=== PATIENT | female | born 1965 | race Two or more races ===

== ENCOUNTER 2021-03-23 12:49 | Emergency (ER) | payer OTHER ==
[2021-03-23 12:55] VITALS: TEMP 98
--- NOTE | 2021-03-23 13:03 | ED ---
General Adult HPI - General Chief complaint: Shortness of Breath Stated complaint: Covid+, SOB Time Seen by Provider: 03/23/21 12:58 Source: patient, RN notes reviewed Mode of arrival: ambulatory Limitations: no limitations - History of Present Illness Initial comments: Patient is a 54-year-old female that presents to the emergency department complaining of increased shortness of breath after being Covid-positive on 03/19/2021. She notes that she has no other symptoms or complaints other than the increased shortness of breath. She was well-appearing well-hydrated while sitting up in bed during exam and interview. She denied any chest pain headache nausea vomiting diarrhea constipation fever fatigue chills loss of sense of taste or smell. - Related Data Previous Rx's Medication Instructions Recorded Ascorbic Acid [Vitamin C] 1,000 mg PO DAILY 30 Days #30 03/23/21 tablet Cholecalciferol (Vitamin D3) 125 mcg PO DAILY 30 Days #30 cap 03/23/21 [Vitamin D3 (5000 Iu)] Zinc 50 mg PO DAILY 30 Days #30 tablet 03/23/21 Allergies Allergy/AdvReac Type Severity Reaction Status Date / Time No Known Allergies Allergy Verified 03/23/21 12:55 Review of Systems ROS Statement: Those systems with pertinent positive or pertinent negative responses have been documented in the HPI. ROS Other: All systems not noted in ROS Statement are negative. Past Medical History Past Medical History: Pneumonia, Thyroid Disorder Additional Past Medical History / Comment(s): Covid + 03/19/21 History of Any Multi-Drug Resistant Organisms: None Reported Past Surgical History: No Surgical Hx Reported Past Psychological History: No Psychological Hx Reported Smoking Status: Never smoker Past Alcohol Use History: None Reported Past Drug Use History: None Reported General Exam Limitations: no limitations General appearance: alert, in no apparent distress Head exam: Present: atraumatic, normocephalic, normal inspection Eye exam: Present: normal appearance, PERRL, EOMI. Absent: scleral icterus, conjunctival injection, periorbital swelling Neck exam: Present: normal inspection Respiratory exam: Present: normal lung sounds bilaterally. Absent: respiratory distress, wheezes, rales, rhonchi, stridor Cardiovascular Exam: Present: regular rate, normal rhythm, normal heart sounds. Absent: systolic murmur, diastolic murmur, rubs, gallop, clicks Extremities exam: Present: normal inspection, full ROM, normal capillary refill. Absent: tenderness, pedal edema, joint swelling, calf tenderness Back exam: Present: normal inspection Neurological exam: Present: alert, oriented X3, CN II-XII intact Psychiatric exam: Present: normal affect, normal mood Skin exam: Present: warm, dry, intact, normal color. Absent: rash Course Vital Signs 03/23/21 12:52 Temperature 98.0 F Pulse Rate 82 Respiratory 20 Rate Blood Pressure 145/67 O2 Sat by Pulse 95 Oximetry Medical Decision Making - Medical Decision Making 55-year-old female who is Covid-positive on 03/19/2021 complaining of shortness of breath. Chest x-ray and rapid Covid test ordered. Patient was informed that she does not meet the criteria for monoclonal antibody therapy. Covid test positive. Case discussed with Dr. Chiu, patient can discharge home with conservative management. - Lab Data Lab Results 03/23/21 Range/Units 13:04 Coronavirus (PCR) Detected A (Not Detectd) - Radiology Data Radiology results: report reviewed, image reviewed Chest x-ray no acute cardiopulmonary process. Disposition Clinical Impression: COVID-19 Disposition: HOME SELF-CARE Condition: Stable Instructions (If sedation given, give patient instructions): Coronavirus Disease 2019 (COVID-19) Additional Instructions: Please return to the Emergency Department if symptoms worsen or any other concerns. Follow-up primary care after the 10-14 day quarantine. Symptom onset. Vitamin C sent to pharmacy to help relieve and reduce symptoms. Increase oral fluids, get plenty rest. Prescriptions: Ascorbic Acid [Vitamin C] 1,000 mg PO DAILY 30 Days #30 tablet Cholecalciferol (Vitamin D3) [Vitamin D3 (5000 Iu)] 125 mcg PO DAILY 30 Days #30 cap Zinc 50 mg PO DAILY 30 Days #30 tablet Is patient prescribed a controlled substance at d/c from ED?: No Referrals: Nonstaff,Physician [Primary Care Provider] - 1-2 days Time of Disposition: 14:16
--- NOTE | 2021-03-23 14:08 | XR ---
EXAMINATION TYPE: XR chest 2V DATE OF EXAM: 03/23/2021 COMPARISON: NONE HISTORY: Shortness of breath. COVID positive. TECHNIQUE: Frontal and lateral views of the chest are obtained. FINDINGS: There is no suspicious focal air space opacity, pleural effusion, or pneumothorax seen. T he cardiac silhouette size is upper limits of normal. The osseous structures are intact. IMPRESSION: No acute cardiopulmonary process.
[2021-03-23 14:25] VITALS: BP 136/89; PULSE 89; RESP 16
== END 2021-03-23 14:24 | disposition home or self-care (01) ==
LOC: EC 12:49
DX: U07.1 COVID-19 (principal)
CPT/HCPCS: 71046; 87635; 99285

== ENCOUNTER 2021-03-25 12:32 | Emergency (ER) | payer OTHER ==
[2021-03-25 12:44] VITALS: TEMP 98.1
[2021-03-25 13:15] LABS: Anisocytosis Slight; Basophils % (A) 0 %; Eosinophils % (A) 0 %; HCT 33.3 % (34.0-46.0); HGB 10.7 gm/dL (11.4-16.0); Hypochromasia Slight; Lymphocytes # (A) 2.8 k/uL (1.0-4.8); Lymphocytes % (A) 54 %; MCH 22.2 pg (25.0-35.0); MCHC 32.1 g/dL (31.0-37.0); MCV 69.2 fL (80.0-100.0); Mean Platelet Volume 6.7; Microcytosis Marked; Monocytes # (A) 0.4 k/uL (0-1.0); Monocytes % (A) 7 %; Neutrophils # (A) 1.9 k/uL (1.3-7.7); Neutrophils % (A) 36 %; Platelet Count 254 k/uL (150-450); Poikilocytosis Slight; RBC 4.81 m/uL (3.80-5.40); RDW 17.8 % (11.5-15.5); WBC 5.3 k/uL (3.8-10.6)
--- NOTE | 2021-03-25 13:23 | XR ---
EXAMINATION TYPE: XR chest 2V DATE OF EXAM: 03/25/2021 COMPARISON: 03/23/2021 INDICATION: Chest pain and weakness TECHNIQUE: Frontal and lateral views of the chest are obtained. FINDINGS: The heart size is normal. The pulmonary vasculature is normal. The lungs are clear. IMPRESSION: 1. No acute pulmonary process.
[2021-03-25 13:35] LABS: ALT 30 U/L (4-34); AST 42 U/L (14-36); African American GFR (CKD) >90 (>60 ml/min/1.73 sqM); Albumin 4.5 g/dL (3.5-5.0); Alkaline Phosphatase 97 U/L (38-126); Anion Gap 10 mmol/L; Blood Urea Nitrogen 11 mg/dL (7-17); Calcium 9.6 mg/dL (8.4-10.2); Carbon Dioxide 24 mmol/L (22-30); Chloride 107 mmol/L (98-107); Glucose 109 mg/dL (74-99); Magnesium 1.9 mg/dL (1.6-2.3); Non-African American GFR(CKD) >90 (>60 ml/min/1.73 sqM); Potassium 3.8 mmol/L (3.5-5.1); Sodium 141 mmol/L (137-145); Total Bilirubin 0.6 mg/dL (0.2-1.3); Total Protein 8.9 g/dL (6.3-8.2)
[2021-03-25 13:44] LABS: Partial Thromboplastin Time 23.9 sec (22.0-30.0); Prothrombin Time 10.4 sec (9.0-12.0)
[2021-03-25 13:47] LABS: D-Dimer 0.89 mg/L FEU (<0.60)
--- NOTE | 2021-03-25 14:30 | CT ---
EXAMINATION TYPE: CT chest angio for PE DATE OF EXAM: 03/25/2021 COMPARISON: None HISTORY: High heart rate CT DLP: 264.8 mGycm Automated exposure control for dose reduction was used. CONTRAST: Performed with IV Contrast, patient injected with 100, wasted 22 mL of Isovue 370. Images obtained from the thoracic inlet to the diaphragm with IV contrast. There are 3-D post process ed images. There is no mediastinal adenopathy. There are a few mediastinal and peritracheal lymph nodes that rancho sure less than 1 cm. There are no hilar masses. There are bronchial lymph nodes up to 1 cm. There is normal contrast opacification of the pulmonary arteries. There are no filling defects. Thoracic aorta is intact. There is no aneurysm or dissection. Ascending aorta measures 3.3 cm. There are patchy groundglass peripheral pulmonary mild bilateral infiltrates. There is no pleural eff usion. There is no pericardial effusion. The thoracic spine is intact. There is no compression fracture. Sternum is intact. I see no bony dest ructive process. The upper abdominal soft tissues appear intact. IMPRESSION: No evidence of pulmonary embolism. Mild patchy peripheral groundglass pulmonary interstitial pneumonia.
[2021-03-25 15:21] VITALS: RESP 16
[2021-03-25] MEDS ORDERED: LORazepam 2 MG/ML INJ IM STA (15:21)
--- NOTE | 2021-03-25 17:12 | ED ---
Chest Pain HPI - General Chief Complaint: Chest Pain Stated Complaint: High heart rate Time Seen by Provider: 03/25/21 12:50 Source: patient Mode of arrival: wheelchair Limitations: no limitations - History of Present Illness Initial Comments: 56-year-old female presenting today for chief complaint of chest discomfort. pt states she tested positive for covid 2 days ago, she states symptoms began sunday. patient states she doesnt really feel short of breath but at times her heart feels like it is racing. pt admits to fatigue and chills. denies additio nal complaints. Denies rashes, diarrhea, nausea, vomiting, jaw or arm pain. patient on arrival appears well nontoxic in no acute distress. - Related Data Home Medications Medication Instructions Recorded Confirmed amLODIPine [Norvasc] 5 mg PO DAILY 03/25/21 03/25/21 Previous Rx's Medication Instructions Recorded Ascorbic Acid [Vitamin C] 1,000 mg PO DAILY 30 Days #30 03/23/21 tablet Cholecalciferol (Vitamin D3) 125 mcg PO DAILY 30 Days #30 cap 03/23/21 [Vitamin D3 (5000 Iu)] Zinc 50 mg PO DAILY 30 Days #30 tablet 03/23/21 ALPRAZolam [Xanax] 0.5 mg PO HS PRN 3 Days #3 tab 03/25/21 Allergies Allergy/AdvReac Type Severity Reaction Status Date / Time No Known Allergies Allergy Verified 03/25/21 14:12 Review of Systems ROS Statement: Those systems with pertinent positive or pertinent negative responses have been documented in the HPI. ROS Other: All systems not noted in ROS Statement are negative. Past Medical History Past Medical History: Diabetes Mellitus, Pneumonia, Thyroid Disorder Additional Past Medical History / Comment(s): Covid + 03/19/21, History of Any Multi-Drug Resistant Organisms: None Reported Past Surgical History: No Surgical Hx Reported Past Psychological History: No Psychological Hx Reported Smoking Status: Never smoker Past Alcohol Use History: None Reported Past Drug Use History: None Reported General Exam - General Exam Comments Initial Comments: General: The patient is awake and alert, in no distress Eye: +3 mm pupils are equal, round and reactive to light, extra-ocular movements are intact. No nystagmus. There is normal conjunctiva bilaterally. No signs of icterus. Ears, nose, mouth and throat: There are moist mucous membranes and no oral lesions. Neck: The neck is supple, there is no tenderness or JVD. Cardiovascular: There is a regular rate and rhythm. No murmur, rub or gallop is appreciated. Respiratory: Lungs are clear to auscultation, respirations are non-labored, breath sounds are equal. No wheezes, stridor, rales, or rhonchi. Gastrointestinal: Soft, non-distended, non-tender abdomen without masses or organomegaly noted. There is no rebound or guarding present. Musculoskeletal: Normal ROM, no tenderness. Strength 5/5. Sensation intact. Radial and DP pulses equal bilaterally 2+. Neurological: A&O x 3. CN II-XII intact grossly, There are no obvious motor or sensory deficits. Coordination appears grossly intact. Speech is normal. Skin: Skin is warm and dry and no rashes or lesions are noted. No calf pain or LE edema. Psychiatric: Cooperative, appropriate mood & affect, normal judgment. Limitations: no limitations Course Vital Signs 03/25/21 03/25/21 03/25/21 12:36 15:18 17:53 Temperature 98.1 F Pulse Rate 67 67 89 Respiratory 18 16 16 Rate Blood Pressure 129/76 140/77 139/86 O2 Sat by Pulse 99 99 99 Oximetry Procedures - [facility] Protocol (Time Out) Nurse: Melissa Quintero Chest Pain MDM - MDM interpreters used: [id number] Rebecca [id number] Gloria Labs stable. Troponin (-) x2. CXR no specific findings. CTA no PE, covid pneumonia present. pt appears wellnontoxic. Not candidate for monoclonal antibodies. will discharge with pcp f/u. patient agreeable to this care plan. she requested medication for night time anxiety. Disposition Clinical Impression: Chest discomfort, Dyspnea, Pneumonia due to COVID-19 virus, COVID-19 Disposition: HOME SELF-CARE Condition: Good Instructions (If sedation given, give patient instructions): Coronavirus Disease 2019 (COVID-19) Additional Instructions: Please use medication as discussed. Please follow-up with family doctor in the next 2 days.. Please return to emergency room if the symptoms increase or worsen or for any other concerns. Prescriptions: ALPRAZolam [Xanax] 0.5 mg PO HS PRN 3 Days #3 tab PRN Reason: Anxiety Is patient prescribed a controlled substance at d/c from ED?: No Referrals: Marnie Cody MD [Primary Care Provider] - 1-2 days Time of Disposition: 17:12
[2021-03-25 17:54] VITALS: BP 139/86; PULSE 89
== END 2021-03-25 17:53 | disposition home or self-care (01) ==
LOC: EC 12:32
DX: R07.89 Other chest pain (principal); J12.82 Pneumonia due to coronavirus disease 2019; U07.1 COVID-19; E11.9 Type 2 diabetes mellitus without complications; E07.9 Disorder of thyroid, unspecified
CPT/HCPCS: 36415; 93005; 85379; 83880; 80053; 83735; 84484; 85025; 85610; 85730; 71046; 71275; 99285; 96372; J2060; Q9967

== ENCOUNTER 2022-04-15 23:08 | Observation (INO) | payer OTHER ==
[2022-04-15 23:18] VITALS: TEMP 98
[2022-04-15] MEDS ORDERED: SODIUM CHLORIDE 0.9% 1,000 ML IV STA (23:21)
--- NOTE | 2022-04-15 23:32 | ED ---
Syncope HPI - General Chief Complaint: Weakness Stated Complaint: Syncope Time Seen by Provider: 04/15/22 23:21 Source: patient, RN notes reviewed, old records reviewed Mode of arrival: wheelchair Limitations: language barrier - History of Present Illness Initial Comments: This is a 57-year-old female who is a language barrier history obtained from family was at bedside patient has syncopal episode today. Patient does have history of syncope recently admitted is been complaining of headaches. Family states she just not acting appropriately time she feels very fatigued and weak. The most part otherwise no travel history no sick contacts does complain of headache no chest pain abdominal pain or shortness of breath. MD Complaint: loss of consciousness, collapsed, other (Patient was confused for a short period of time) -: minutes(s) Prodromal Symptoms: headache -: second(s) Witnessed: yes - by bystander Injuries Sustained Associated with Event: None Current Symptoms: back to baseline, lightheaded History: previous syncopal episode Context: at rest (This occurred during conversation with her ) Treatments Prior to Arrival: none - Related Data Home Medications Medication Instructions Recorded Confirmed amLODIPine [Norvasc] 5 mg PO DAILY 03/25/21 03/25/21 Previous Rx's Medication Instructions Recorded Ascorbic Acid [Vitamin C] 1,000 mg PO DAILY 30 Days #30 03/23/21 tablet Cholecalciferol (Vitamin D3) 125 mcg PO DAILY 30 Days #30 cap 03/23/21 [Vitamin D3 (5000 Iu)] Zinc 50 mg PO DAILY 30 Days #30 tablet 03/23/21 ALPRAZolam [Xanax] 0.5 mg PO HS PRN 3 Days #3 tab 03/25/21 Allergies Allergy/AdvReac Type Severity Reaction Status Date / Time No Known Allergies Allergy Verified 03/25/21 14:12 Review of Systems ROS Statement: Those systems with pertinent positive or pertinent negative responses have been documented in the HPI. ROS Other: All systems not noted in ROS Statement are negative. Past Medical History Past Medical History: Diabetes Mellitus, Pneumonia, Thyroid Disorder Additional Past Medical History / Comment(s): Covid + 03/19/21, History of Any Multi-Drug Resistant Organisms: None Reported Past Surgical History: No Surgical Hx Reported Past Psychological History: No Psychological Hx Reported Smoking Status: Never smoker Past Alcohol Use History: None Reported Past Drug Use History: None Reported - Past Family History family Family Medical History: Unable to Obtain General Exam Limitations: language barrier, altered mental status General appearance: alert, in no apparent distress Head exam: Present: atraumatic, normocephalic, normal inspection Eye exam: Present: normal appearance, PERRL, EOMI. Absent: scleral icterus, conjunctival injection, periorbital swelling ENT exam: Present: normal exam, mucous membranes moist Neck exam: Present: normal inspection. Absent: tenderness, meningismus, lymphadenopathy Respiratory exam: Present: normal lung sounds bilaterally. Absent: respiratory distress, wheezes, rales, rhonchi, stridor Cardiovascular Exam: Present: regular rate, normal rhythm, normal heart sounds. Absent: systolic murmur, diastolic murmur, rubs, gallop, clicks GI/Abdominal exam: Present: soft, normal bowel sounds. Absent: distended, te nderness, guarding, rebound, rigid Extremities exam: Present: normal inspection, full ROM, normal capillary refill. Absent: tenderness, pedal edema, joint swelling, calf tenderness Back exam: Present: normal inspection Neurological exam: Present: alert, oriented X3, CN II-XII intact Psychiatric exam: Present: normal affect, normal mood Skin exam: Present: warm, dry, intact, normal color. Absent: rash Course Vital Signs 04/15/22 04/15/22 04/16/22 23:15 23:39 00:30 Temperature 98.0 F 98.0 F Pulse Rate 72 79 73 Pulse Rate [ Sitting Data Governance Consultant] Pulse Rate [ Standing Data Governance Consultant ] Pulse Rate [ Supine Data Governance Consultant] Respiratory 18 18 18 Rate Blood Pressure 146/74 142/76 141/77 Blood Pressure [Sitting] Blood Pressure [Standing] Blood Pressure [Supine] O2 Sat by Pulse 98 97 97 Oximetry 04/16/22 04/16/22 04/16/22 04:39 06:21 11:03 Temperature Pulse Rate 71 56 L Pulse Rate [ 54 L Sitting Data Governance Consultant] Pulse Rate [ 66 Standing Data Governance Consultant ] Pulse Rate [ 64 Supine Data Governance Consultant] Respiratory 16 18 Rate Blood Pressure 108/76 121/70 Blood Pressure 146/81 [Sitting] Blood Pressure 160/76 [Standing] Blood Pressure 129/73 [Supine] O2 Sat by Pulse 97 96 Oximetry - Reevaluation(s) Reevaluation #1: 04/16/22 Medical record is reviewed Reevaluation #2: 04/16/22 Patient has no recurrent syncope here in the ER patient denies chest pain did have a headache no abdominal pain Reevaluation #3: 04/16/22 Patient informed of results and questions have been answered - Consultations Consultation #1: Spoke with sound who agrees to admit the patient EKG Findings - EKG Comments: EKG Findings:: EKG is sinus rhythm 60 AL 132 QRS 89 QTC 425 Medical Decision Making - Medical Decision Making 57 female presenting after syncopal event today. Patient will be admitted for evaluation of cause of possible syncope possible arrhythmia. Testing is otherwise negative here in the ER she also complained of headache computed tomography scan is pending - Lab Data Result diagrams: 04/16/22 00:10 04/16/22 00:10 Lab Results 04/16/22 04/16/22 04/16/22 Range/Units 00:10 00:10 00:10 WBC 6.6 (3.8-10.6) k/uL RBC 4.37 (3.80-5.40) m/uL Hgb 9.8 L (11.4-16.0) gm/dL Hct 31.8 L (34.0-46.0) % MCV 72.9 L (80.0-100.0) fL MCH 22.4 L (25.0-35.0) pg MCHC 30.8 L (31.0-37.0) g/dL RDW 16.9 H (11.5-15.5) % Plt Count 237 (150-450) k/uL MPV 7.3 Neutrophils % (Manual) 28 % Band Neuts % (Manual) 5 % Lymphocytes % (Manual) 44 % Monocytes % (Manual) 13 % Eosinophils % (Manual) 10 % Neutrophils # (Manual) 2.10 (1.3-7.7) k/uL Lymphocytes # (Manual) 2.90 (1.0-4.8) k/uL Monocytes # (Manual) 0.86 (0-1.0) k/uL Eosinophils # (Manual) 0.66 (0-0.7) k/uL Nucleated RBCs 0 (0-0) /100 WBC Manual Slide Review Performed Polychromasia Present Hypochromasia Marked Poikilocytosis (manual Present Anisocytosis Slight Anisocytosis (manual) Present Microcytosis Moderate Target Cells Present PT (9.0-12.0) sec INR (<1.2) APTT (22.0-30.0) sec Sodium 141 (137-145) mmol/L Potassium 3.7 (3.5-5.1) mmol/L Chloride 108 H (98-107) mmol/L Carbon Dioxide 24 (22-30) mmol/L Anion Gap 9 mmol/L BUN 10 (7-17) mg/dL Creatinine 0.51 L (0.52-1.04) mg/dL Est GFR (CKD-EPI)AfAm >90 (>60 ml/min/1.73 sqM) Est GFR (CKD-EPI)NonAf >90 (>60 ml/min/1.73 sqM) Glucose 103 H (74-99) mg/dL Plasma Lactic Acid Regan 1.0 (0.7-2.0) mmol/L Calcium 8.9 (8.4-10.2) mg/dL Phosphorus 3.7 (2.5-4.5) mg/dL Magnesium 1.9 (1.6-2.3) mg/dL Total Bilirubin 0.3 (0.2-1.3) mg/dL AST 47 H (14-36) U/L ALT 36 H (4-34) U/L Alkaline Phosphatase 114 (38-126) U/L Ammonia 22 (<30) umol/L Troponin I (0.000-0.034) ng/mL NT-Pro-B Natriuret Pep pg/mL Total Protein 8.0 (6.3-8.2) g/dL Albumin 4.1 (3.5-5.0) g/dL TSH 0.837 (0.465-4.680) mIU/L 04/16/22 04/16/22 04/16/22 Range/Units 00:10 00:10 00:52 WBC (3.8-10.6) k/uL RBC (3.80-5.40) m/uL Hgb (11.4-16.0) gm/dL Hct (34.0-46.0) % MCV (80.0-100.0) fL MCH (25.0-35.0) pg MCHC (31.0-37.0) g/dL RDW (11.5-15.5) % Plt Count (150-450) k/uL MPV Neutrophils % (Manual) % Band Neuts % (Manual) % Lymphocytes % (Manual) % Monocytes % (Manual) % Eosinophils % (Manual) % Neutrophils # (Manual) (1.3-7.7) k/uL Lymphocytes # (Manual) (1.0-4.8) k/uL Monocytes # (Manual) (0-1.0) k/uL Eosinophils # (Manual) (0-0.7) k/uL Nucleated RBCs (0-0) /100 WBC Manual Slide Review Polychromasia Hypochromasia Poikilocytosis (manual Anisocytosis Anisocytosis (manual) Microcytosis Target Cells PT 10.5 (9.0-12.0) sec INR 1.0 (<1.2) APTT 22.4 (22.0-30.0) sec Sodium (137-145) mmol/L Potassium (3.5-5.1) mmol/L Chloride (98-107) mmol/L Carbon Dioxide (22-30) mmol/L Anion Gap mmol/L BUN (7-17) mg/dL Creatinine (0.52-1.04) mg/dL Est GFR (CKD-EPI)AfAm (>60 ml/min/1.73 sqM) Est GFR (CKD-EPI)NonAf (>60 ml/min/1.73 sqM) Glucose (74-99) mg/dL Plasma Lactic Acid Regan (0.7-2.0) mmol/L Calcium (8.4-10.2) mg/dL Phosphorus (2.5-4.5) mg/dL Magnesium (1.6-2.3) mg/dL Total Bilirubin (0.2-1.3) mg/dL AST (14-36) U/L ALT (4-34) U/L Alkaline Phosphatase (38-126) U/L Ammonia (<30) umol/L Troponin I <0.012 (0.000-0.034) ng/mL NT-Pro-B Natriuret Pep 24 pg/mL Total Protein (6.3-8.2) g/dL Albumin (3.5-5.0) g/dL TSH (0.465-4.680) mIU/L - Radiology Data Radiology results: report reviewed (CT brain CTA neck is negative for acute disease), image reviewed Disposition Clinical Impression: Syncope, Dehydration, Weakness Disposition: ADMITTED IP TO THIS HOSP Condition: Undetermined Is patient prescribed a controlled substance at d/c from ED?: No
[2022-04-16 00:29] LABS: ALT 36 U/L (4-34); AST 47 U/L (14-36); African American GFR (CKD) >90 (>60 ml/min/1.73 sqM); Albumin 4.1 g/dL (3.5-5.0); Alkaline Phosphatase 114 U/L (38-126); Anion Gap 9 mmol/L; Blood Urea Nitrogen 10 mg/dL (7-17); Calcium 8.9 mg/dL (8.4-10.2); Carbon Dioxide 24 mmol/L (22-30); Chloride 108 mmol/L (98-107); Glucose 103 mg/dL (74-99); Magnesium 1.9 mg/dL (1.6-2.3); Non-African American GFR(CKD) >90 (>60 ml/min/1.73 sqM); Phosphorus 3.7 mg/dL (2.5-4.5); Potassium 3.7 mmol/L (3.5-5.1); Sodium 141 mmol/L (137-145); Total Bilirubin 0.3 mg/dL (0.2-1.3)
--- NOTE | 2022-04-16 01:16 | CT ---
EXAMINATION TYPE: CT brain wo con DATE OF EXAM: 04/16/2022 COMPARISON: None HISTORY: WATSON CT DLP: 1448.5 mGycm Automated exposure control for dose reduction was used. Images obtained of the brain with no contrast. Ventricles have normal size. There is no mass effect or midline shift. No sign of intracranial hemorr mary kate. The calvarium is intact. IMPRESSION: Negative CT scan of the brain.
--- NOTE | 2022-04-16 01:27 | CT ---
EXAMINATION TYPE: CT angio head neck DATE OF EXAM: 04/16/2022 COMPARISON: None HISTORY: WATSON CT DLP: 1448.5 mGycm Automated exposure control for dose reduction was used. CONTRAST: Performed with IV Contrast, patient injected with 65 mL of Isovue 370. Images obtained from the aortic arch to the vertex of the brain with IV contrast. There are Three-D p ostprocessed images. There is normal branching pattern of the great vessels of the aortic arch. There is arterial flow in both subclavian arteries. There is arterial flow in both vertebral arteries. There is arterial flow i n the common internal and external carotid arteries bilaterally. No evidence of any significant plaqu e formation at the carotid artery bifurcations. No evidence of carotid or vertebral artery aneurysm o r dissection. There is arterial flow in the anterior middle and posterior cerebral arteries bilaterally. No evidenc e of intracranial aneurysm or neovascularity. No mass effect. There is normal enhancement of the veno us sinuses. No evidence of intracranial hemodynamic arterial stenosis. IMPRESSION: Negative CT angiogram of the neck. Negative CT angiogram of the brain.
[2022-04-16 01:28] LABS: Anisocytosis Slight; HCT 31.8 % (34.0-46.0); HGB 9.8 gm/dL (11.4-16.0); Hypochromasia Marked; MCH 22.4 pg (25.0-35.0); MCHC 30.8 g/dL (31.0-37.0); MCV 72.9 fL (80.0-100.0); Mean Platelet Volume 7.3; Microcytosis Moderate; Platelet Count 237 k/uL (150-450); RBC 4.37 m/uL (3.80-5.40); RDW 16.9 % (11.5-15.5); WBC 6.6 k/uL (3.8-10.6)
[2022-04-16 01:33] LABS: Partial Thromboplastin Time 22.4 sec (22.0-30.0); Prothrombin Time 10.5 sec (9.0-12.0)
[2022-04-16] MEDS ORDERED: NALOXONE 0.4 MG/ML 1 ML VIAL IV PRN (02:10)
[2022-04-16] MEDS ORDERED: LORazepam 2 MG/ML INJ IV PRN (02:10)
[2022-04-16] MEDS ORDERED: ONDANSETRON 4 MG/2 ML VIAL IVP PRN (02:10)
[2022-04-16 03:09] LABS: Band Neutrophils % 5 %; Eosinophils # (M) 0.66 k/uL (0-0.7); Monocytes # (M) 0.86 k/uL (0-1.0); Neutrophils % (M) 28 %; Nucleated Red Blood Cells 0 /100 WBC (0-0); Total Cells Counted 100
[2022-04-16 03:11] LABS: Anisocytosis (M) Present; Poikilocytosis (M) Present; Polychromasia Present; Target Cells Present
[2022-04-16] MEDS: SODIUM CHLORIDE 0.9% 1,000 ML IV SCH ×2 (03:30→12:24)
[2022-04-16 04:05] LABS: Appearance,Urine Clear (Clear); Bilirubin,Urine Negative (Negative); Blood,Urine Negative (Negative); Color,Urine Light Yellow; Glucose,Urine (UA) Negative (Negative); Ketones,Urine Negative (Negative); Leukocyte Esterase,Urine Negative (Negative); Nitrite,Urine Negative (Negative); Protein,Urine Negative (Negative); Urobilinogen,Urine <2.0 mg/dL (<2.0)
--- NOTE | 2022-04-16 04:21 | P.HPIM ---
History of Present Illness H&P Date: 04/16/22 Chief Complaint: syncope 57 year old female with DM language barrier prevents patient from providing any meaningful history. per ED, patient had 2 episodes of syncope at home over past couple days, no injuries. patient can understand italian and answers yes and no. she reports fatigue and syncope . but can not explain the context of which she is having these episodes. denies fever, chills, chest pain , dizziness, trouble breathing, changes in hearing or vision. denies palpitations. denies seizure like activity , denies any abd pain , changes in bowel or urinary habits. blood work showed microcytic anemia CTA head and neck no acute pathology CT brain no acute pathology EKG NSR Review of Systems language barrier Past Medical History Past Medical History: Diabetes Mellitus, Pneumonia, Thyroid Disorder Additional Past Medical History / Comment(s): Covid + 03/19/21, History of Any Multi-Drug Resistant Organisms: None Reported Past Surgical History: No Surgical Hx Reported Past Psychological History: No Psychological Hx Reported Smoking Status: Never smoker Past Alcohol Use History: None Reported Past Drug Use History: None Reported - Past Family History family Family Medical History: Unable to Obtain Medications and Allergies Home Medications Medication Instructions Recorded Confirmed Type Ascorbic Acid [Vitamin C] 1,000 mg PO DAILY 30 Days #30 03/23/21 03/25/21 Rx tablet Cholecalciferol (Vitamin D3) 125 mcg PO DAILY 30 Days #30 cap 03/23/21 03/25/21 Rx [Vitamin D3 (5000 Iu)] Zinc 50 mg PO DAILY 30 Days #30 tablet 03/23/21 03/25/21 Rx ALPRAZolam [Xanax] 0.5 mg PO HS PRN 3 Days #3 tab 03/25/21 Rx amLODIPine [Norvasc] 5 mg PO DAILY 03/25/21 03/25/21 History Allergies Allergy/AdvReac Type Severity Reaction Status Date / Time No Known Allergies Allergy Verified 03/25/21 14:12 Physical Exam Vitals: Vital Signs Temp Pulse Resp BP Pulse Ox 04/15/22 23:39 79 18 142/76 97 04/15/22 23:15 98.0 F 72 18 146/74 98 Intake and Output 04/15/22 04/15/22 04/16/22 14:59 22:59 06:59 Other: Weight 64.41 kg Constitutional: No acute distress, conversant, pleasant Eyes: Anicteric sclerae, moist conjunctiva, Pupils equal round reactive to light ENMT: NC/AT Oropharynx clear, no erythema, or exudates Neck: Supple, FROM, no masses, or JVD No carotid bruits No thyromegaly Lungs: Clear to auscultation Clear to percussion Normal respiratory effort, no accessory muscle use Cardiovascular: Heart regular in rate and rhythm, No murmurs, gallops, or rubs No peripheral edema Abdominal: Soft Nontender, no guarding, rebound or rigidity Abdomen moving with respiration Normoactive bowel sounds No hepatomegaly, No splenomegaly No palpable mass No abdominal wall hernia noted Skin: Normal temperature, tone, texture, turgor No induration No subcutaneous nodules No rash, lesions No ulcers Extremities: No digital cyanosis No clubbing Pedal pulses intact and symmetrical Radial pulses intact and symmetrical No calf tenderness Psychiatric: Alert and oriented to person, place Appropriate affect fair judgement Neuro Muscles Strength 5/5 in all 4 extremities Sensation to light touch grossly present throughout Cranial nerves II-XII grossly intact No focal sensory deficits Lymphatics: no palpable cervical or supraclavicular , or inguinal lymph nodes Results CBC & Chem 7: 04/16/22 00:10 04/16/22 00:10 Labs: Abnormal Lab Results - Last 24 Hours (Table) 04/16/22 04/16/22 Range/Units 00:10 00:10 Hgb 9.8 L (11.4-16.0) gm/dL Hct 31.8 L (34.0-46.0) % MCV 72.9 L (80.0-100.0) fL MCH 22.4 L (25.0-35.0) pg MCHC 30.8 L (31.0-37.0) g/dL RDW 16.9 H (11.5-15.5) % Chloride 108 H (98-107) mmol/L Creatinine 0.51 L (0.52-1.04) mg/dL Glucose 103 H (74-99) mg/dL AST 47 H (14-36) U/L ALT 36 H (4-34) U/L Assessment and Plan Assessment: syncope imaging of the brain negative neuro checks fall precautions cardiology eval echocardiogram cardiac tele monitor vital signs orthostatic vitals IVF hydration with normal saline DM insulin sliding scale microcytic anemia iron studies FOBT DVT PPX heparin sc tid full code anticipated length of stay < 2 midnights
[2022-04-16 06:23] VITALS: RESP 18
[2022-04-16] MEDS ORDERED: INSULIN ASPART (NovoLOG) 100 UNIT/ML VIAL SQ SCH (07:30)
[2022-04-16] MEDS ORDERED: HEPARIN SODIUM,PORCINE/PF 5,000 UNIT/0.5 ML SYRINGE SQ SCH (08:00)
[2022-04-16 09:03] LABS: Glucose,Whole Blood 100 mg/dL (75-99)
[2022-04-16 11:04] VITALS: BP 129/73
[2022-04-16 11:05] VITALS: PULSE 64
--- NOTE | 2022-04-16 11:32 | P.CRDCN ---
History of Present Illness Consult reason: sycope History of present illness: 57-year-old lady with history of hypertension comes to Hospital having had an episode of syncope. She has limited Frisian language skills but was earlier interviewed by My nurse practitioner with the daughter at the bedside. patient had a syncopal event while sitting in a chair talking to her suddenly had some chest tightness felt unwell and passed out. She did not have any injury. Did not have bladder bowel incontinence. He did not have any seizure disorder. She has not had any further episodes of chest pain. At the time of my evaluation in the emergency room she is sitting comfortably at rest and is free of any symptoms. An EKG did not reveal any changes. Cardiac enzymes have been negative so far. I'm going to check a d-dimer to complete her workup. Will watch her on the monitor to rule out cardiac arrhythmia and obtain a 2-D echo in the morning to assess her LV function and wall motion. If this workup is negative she can be discharged home and arrange an outpatient stress test if she has any wall motion abnormalities we might consider invasive angiography. Past medical history significant for hypertension. Constitutional: Denies chills. Denies fever. Eyes: Denies blurred vision. Denies pain. Ears, nose, mouth and throat: Denies headache. Denies sore throat. Cardiovascular: Denies chest pain. Denies shortness of breath. Respiratory: Denies cough. Gastrointestinal: Denies abdominal pain. Denies diarrhea. Denies nausea. Denies vomiting. Musculoskeletal: Denies myalgias. Integumentary: Denies pruritus. Denies rash. Neurological: Denies numbness. Denies weakness. Significant for syncope Psychiatric: Denies anxiety. Denies depression. Endocrine: Denies fatigue. Denies weight change. Genitourinary: Denies burning, hematuria, frequency of urination. Hematological: No anemia or excess bleeding. General: The patient is awake and alert, in no distress, and does not appear acutely ill. Skin: Skin is warm and dry and no rashes or lesions are noted. Eye: Pupils are equal, round and reactive to light, extra-ocular movements are intact; there is normal conjunctiva bilaterally. Ears, nose, mouth and throat: There are moist mucous membranes and no oral lesions. Neck: The neck is supple, there is no tenderness or JVD. Cardiovascular: [ There is a regular rate and rhythm.][ No murmur, rub or gallop is appreciated.] Respiratory: Lungs are clear to auscultation, respirations are non-labored, breath sounds are equal. Gastrointestinal: Soft, non-distended, non-tender abdomen without masses or organomegaly noted. There is no rebound or guarding present. Bowel sounds are unremarkable. Back: There is no tenderness to palpation in the midline. There is no obvious deformity. Musculoskeletal: Normal ROM, no tenderness, There is no pedal edema. There is no calf tenderness or swelling. Extremities:[ No edema.] Vascular: [Femoral pulse is normal.][ Posterior tibial pulses are normal .][Dorsalis pedis is palpable.] Neurological: CN II-XII intact. There are no obvious motor or sensory deficits. Speech is normal. Psychiatric: Cooperative, appropriate mood & affect, normal judgment. assessment and plan: Syncope rule out cardiac causes so far the workup is negative computed tomography scan of the brain is negative EKG doesn't reveal acute changes lab tests have been unremarkable we'll obtain a d-dimer and an echocardiogram tomorrow morning watch her on telemetric to rule out tachycardia or bradycardia arrhythmias Past Medical History Past Medical History: Diabetes Mellitus, Pneumonia, Thyroid Disorder Additional Past Medical History / Comment(s): Covid + 03/19/21, History of Any Multi-Drug Resistant Organisms: None Reported Past Surgical History: No Surgical Hx Reported Past Psychological History: No Psychological Hx Reported Smoking Status: Never smoker Past Alcohol Use History: None Reported Past Drug Use History: None Reported - Past Family History family Family Medical History: Unable to Obtain Medications and Allergies Home Medications Medication Instructions Recorded Confirmed Type Ascorbic Acid [Vitamin C] 1,000 mg PO DAILY 30 Days #30 03/23/21 03/25/21 Rx tablet Cholecalciferol (Vitamin D3) 125 mcg PO DAILY 30 Days #30 cap 03/23/21 03/25/21 Rx [Vitamin D3 (5000 Iu)] Zinc 50 mg PO DAILY 30 Days #30 tablet 03/23/21 03/25/21 Rx ALPRAZolam [Xanax] 0.5 mg PO HS PRN 3 Days #3 tab 03/25/21 Rx amLODIPine [Norvasc] 5 mg PO DAILY 03/25/21 03/25/21 History Allergies Allergy/AdvReac Type Severity Reaction Status Date / Time No Known Allergies Allergy Verified 03/25/21 14:12 Physical Exam Vitals: Vital Signs Temp Pulse Pulse Pulse Pulse Resp BP 04/16/22 11:03 54 L 66 64 04/16/22 06:21 56 L 18 121/70 04/16/22 04:39 71 16 108/76 04/16/22 00:30 98.0 F 73 18 141/77 04/15/22 23:39 79 18 142/76 04/15/22 23:15 98.0 F 72 18 146/74 BP BP BP Pulse Ox 04/16/22 11:03 146/81 160/76 129/73 04/16/22 06:21 96 04/16/22 04:39 97 04/16/22 00:30 97 04/15/22 23:39 97 04/15/22 23:15 98 Intake and Output 04/15/22 04/16/22 04/16/22 22:59 06:59 14:59 Other: Weight 64.41 kg Results 04/16/22 00:10 04/16/22 00:10 Cardiac Enzymes 04/16/22 04/16/22 04/16/22 Range/Units 00:10 00:10 03:29 AST 47 H (14-36) U/L Troponin I <0.012 <0.012 (0.000-0.034) ng/mL 04/16/22 Range/Units 05:36 AST (14-36) U/L Troponin I <0.012 (0.000-0.034) ng/mL Coagulation 04/16/22 Range/Units 00:52 PT 10.5 (9.0-12.0) sec APTT 22.4 (22.0-30.0) sec CBC 04/16/22 Range/Units 00:10 WBC 6.6 (3.8-10.6) k/uL RBC 4.37 (3.80-5.40) m/uL Hgb 9.8 L (11.4-16.0) gm/dL Hct 31.8 L (34.0-46.0) % Plt Count 237 (150-450) k/uL Comprehensive Metabolic Panel 04/16/22 Range/Units 00:10 Sodium 141 (137-145) mmol/L Potassium 3.7 (3.5-5.1) mmol/L Chloride 108 H (98-107) mmol/L Carbon Dioxide 24 (22-30) mmol/L BUN 10 (7-17) mg/dL Creatinine 0.51 L (0.52-1.04) mg/dL Glucose 103 H (74-99) mg/dL Calcium 8.9 (8.4-10.2) mg/dL AST 47 H (14-36) U/L ALT 36 H (4-34) U/L Alkaline Phosphatase 114 (38-126) U/L Total Protein 8.0 (6.3-8.2) g/dL Albumin 4.1 (3.5-5.0) g/dL Current Medications Generic Name Dose Route Start Last Admin Trade Name Freq PRN Reason Stop Dose Admin Heparin Sodium (Porcine) 5,000 unit 04/16/22 08:00 Heparin Sodium,Porcine/Pf 5,000 Unit/0.5 Ml Syringe SQ Q8HR [facility] Sodium Chloride 1,000 mls @ 130 mls/hr 04/16/22 02:15 04/16/22 03:30 Saline 0.9% IV 130 mls/hr .[id number] RODNEY Administration Insulin Aspart 0 unit 04/16/22 07:30 04/16/22 09:13 Insulin Aspart (Novolog) 100 Unit/Ml Vial SQ Not Given ACHS [facility] Protocol Lorazepam 0.5 mg 04/16/22 02:10 Lorazepam 2 Mg/Ml Inj IV Q6HR PRN Anxiety Naloxone HCl 0.2 mg 04/16/22 02:10 Naloxone 0.4 Mg/Ml 1 Ml Vial IV Q2M PRN Opioid Reversal Ondansetron HCl 4 mg 04/16/22 02:10 Ondansetron 4 Mg/2 Ml Vial IVP Q8HR PRN Nausea And Vomiting Intake and Output 04/15/22 04/16/22 04/16/22 22:59 06:59 14:59 Other: Weight 64.41 kg 04/16/22 00:10 04/16/22 00:10
--- NOTE | 2022-04-16 17:31 | P.PN ---
Subjective Progress Note Date: 04/16/22 Hospital course: Patient is a very pleasant 57-year-old female with a past medical history of hypertension, diabetes mellitus type 2 controlled via diet, and iron deficiency anemia. She presented to the emergency department with a chief complaint of palpitations and syncopal episode. Patient underwent full evaluation in the emergency department. EKG was completed showing normal sinus rhythm at 60 bpm with no noted T-wave or ST abnormalities. CT head negative for acute intercranial process. CTA head and neck also negative for acute process. Labs reveal hemoglobin of 9.8 (this appears chronic in nature with previous labs drawn on 03/25/21 revealing hemoglobin of 10.7). BMP showing no significant abnormalities. Liver profile revealing slightly elevated AST of 47 and ALT of 36 otherwise normal findings. TSH 0.837. Troponin less than 0.012. Patient was admitted under services with consultation to cardiology. Troponins trended throughout the night all negative at less than 0.0123 draws. Urinalysis negative for infection. D-dimer negative at 0.50. Physical exam: Patient seen and fully evaluated at bedside this morning. Patient speaks l imited Polish and Translation as needed was provided at bedside by patient's daughter per patient's request.Patient reports feeling much better this morning. She denies having any headache, lightheadedness, dizziness, chest pain, palpitations, shortness of breath, or experiencing any numbness/tin gling/weakness in her extremities. Patient reports yesterday she felt very fatigued and tired all day and just before the syncopal episode states that she felt her heart pounding really really fast. Vital signs reviewed and stable. General: Nontoxic, no distress and appears stated age. Derm: Skin warm and dry, normal coloration for ethnicity. Head: Atraumatic, normocephalic and symmetric. Eyes: EOMs intact, no lid lag, and anicteric sclera Mouth: no lip lesions, mucus membranes moist Cardiovascular: regular rate and rhythm with normal S1S2, no murmur, positive posterior tibial pulses bilaterally, and cap refill < 2 seconds. Lungs: Respirations even, regular, and unlabored on room air. Lungs CTA bilaterally, no rhonchi, no rales, no wheezing, and no accessory muscle usage. Abdominal: soft, nontender to palpation, no guarding, no appreciable organomegaly Ext: ROM intact. No gross muscle atrophy, no edema, no contractures Neuro: Speech clear, face symmetrical and CN II-XII grossly intact with no noted focal neuro deficits Psych: Alert and oriented to person, place, time, and situation. Appropriate and pleasant affect. Assessment and Plan of Care: Syncopal episode Palpitations -EKG showing normal sinus rhythm at 60 bpm. -CT head negative for acute intercranial process. CTA head and neck also negative for acute process. -Cardiology following, appreciate further recommendations -Telemetry monitoring -Continue neuro checks -Fall precautions -Echocardiogram. CODE STATUS: Full code DVT prophylaxis: Heparin Discussed with: Patient, RN, and patient's daughter at bedside. Anticipated discharge date: Likely tomorrow Anticipated discharge place:Home A total of 39 minutes was spent on the care of this complex patient more than 50% of the time was spent in counseling and care coordination. I reviewed the documentation as provided by the NICK above, who is the original author of this note. I agree with the documented assessment and plan, with the following changes: None Objective - Vital Signs Vital signs: Vital Signs Temp 98.0 F 04/16/22 00:30 Pulse 64 04/16/22 11:03 Resp 18 04/16/22 06:21 BP 129/73 04/16/22 11:03 Pulse Ox 96 04/16/22 06:21 FiO2 Intake & Output 04/15/22 04/16/22 04/16/22 18:59 06:59 18:59 Weight 64.41 kg - Labs CBC & Chem 7: 04/16/22 00:10 04/16/22 00:10 Labs: Abnormal Lab Results - Last 24 Hours (Table) 04/16/22 04/16/22 04/16/22 Range/Units 00:10 00:10 03:25 Hgb 9.8 L (11.4-16.0) gm/dL Hct 31.8 L (34.0-46.0) % MCV 72.9 L (80.0-100.0) fL MCH 22.4 L (25.0-35.0) pg MCHC 30.8 L (31.0-37.0) g/dL RDW 16.9 H (11.5-15.5) % Chloride 108 H (98-107) mmol/L Creatinine 0.51 L (0.52-1.04) mg/dL Glucose 103 H (74-99) mg/dL POC Glucose (mg/dL) (75-99) mg/dL AST 47 H (14-36) U/L ALT 36 H (4-34) U/L Ur Specific [place] 1.040 H (1.001-1.035) 04/16/22 Range/Units 09:01 Hgb (11.4-16.0) gm/dL Hct (34.0-46.0) % MCV (80.0-100.0) fL MCH (25.0-35.0) pg MCHC (31.0-37.0) g/dL RDW (11.5-15.5) % Chloride (98-107) mmol/L Creatinine (0.52-1.04) mg/dL Glucose (74-99) mg/dL POC Glucose (mg/dL) 100 H (75-99) mg/dL AST (14-36) U/L ALT (4-34) U/L Ur Specific [place] (1.001-1.035)
--- NOTE | 2022-04-16 17:35 | P.DS ---
Providers Date of admission: 04/16/22 02:10 Expected date of discharge: 04/16/22 Attending physician: Shilpi Bowen MD Consults: 04/16/22 02:10 Consult Physician Routine Consulting Provider: Angela Camilo Consult Reason/Comments: syncope Do you want consulting provider notified?: Yes Primary care physician: Marnie Cody Hospital Course: THIS IS NOT A DISCHARGE SUMMARY, BUT A SUMMARY OF CARE PT LEFT AGAINST MEDICAL ADVICE Syncope episode Palpitations Hypertension Type 2 diabetes mellitus Hospital Course: Patient is a very pleasant 57-year-old female with a past medical history of hypertension, diabetes mellitus type 2 controlled via diet, and iron deficiency anemia. She presented to the emergency department with a chief complaint of palpitations and syncopal episode. Patient underwent full evaluation in the emergency department. EKG was completed showing normal sinus rhythm at 60 bpm with no noted T-wave or ST abnormalities. CT head negative for acute intercranial process. CTA head and neck also negative for acute process. Labs reveal hemoglobin of 9.8 (this appears chronic in nature with previous labs drawn on 03/25/21 revealing hemoglobin of 10.7). BMP showing no significant abnormalities. Liver profile revealing slightly elevated AST of 47 and ALT of 36 otherwise normal findings. TSH 0.837. Troponin less than 0.012. Patient was admitted under services with consultation to cardiology. Troponins trended throughout the night all negative at less than 0.0123 draws. Urinalysis negative for infection. D-dimer negative at 0.50. RECEIVED NOTIFICATION FROM RN THAT PATIENT LEFT AGAINST MEDICAL ADVICE AT 12:25 PM I reviewed the documentation as provided by the NICK above, who is the original author of this note. I agree with the documented assessment and plan, with the following changes: None Patient Condition at Discharge: Undetermined Plan - Discharge Summary New Discharge Prescriptions: No Action Cholecalciferol (Vitamin D3) [Vitamin D3 (5000 Iu)] 125 mcg PO DAILY 30 Days #30 cap Zinc 50 mg PO DAILY 30 Days #30 tablet amLODIPine [Norvasc] 5 mg PO DAILY Ascorbic Acid [Vitamin C] 1,000 mg PO DAILY 30 Days #30 tablet ALPRAZolam [Xanax] 0.5 mg PO HS PRN 3 Days #3 tab PRN Reason: Anxiety Discharge Medication List Ascorbic Acid [Vitamin C] 1,000 mg PO DAILY 30 Days #30 tablet 03/23/21 [Rx] Cholecalciferol (Vitamin D3) [Vitamin D3 (5000 Iu)] 125 mcg PO DAILY 30 Days #30 cap 03/23/21 [Rx] Zinc 50 mg PO DAILY 30 Days #30 tablet 03/23/21 [Rx] ALPRAZolam [Xanax] 0.5 mg PO HS PRN 3 Days #3 tab 03/25/21 [Rx] amLODIPine [Norvasc] 5 mg PO DAILY 03/25/21 [History] Follow up Appointment(s)/Referral(s): Marnie Cody MD [Primary Care Provider] - 1-2 days Discharge Disposition: Left Against Medical Advice
== END 2022-04-16 12:25 | disposition left against medical advice (07) ==
LOC: EC 23:08 → 6NMEDSUR 04-16 02:10
PROVIDERS: ADMIT Internal Medicine; ATTEND Internal Medicine
DX: R55 Syncope and collapse (principal); Z53.29 Procedure and treatment not carried out because of patient's decision for other reasons; E86.0 Dehydration; R53.1 Weakness; R00.2 Palpitations; E11.9 Type 2 diabetes mellitus without complications; D50.9 Iron deficiency anemia, unspecified; R74.01 Elevation of levels of liver transaminase levels; I10 Essential (primary) hypertension; E07.9 Disorder of thyroid, unspecified; Z86.16 Personal history of COVID-19; Z87.01 Personal history of pneumonia (recurrent); Z71.9 Counseling, unspecified; Z79.899 Other long term (current) drug therapy
CPT/HCPCS: 96360; 96361; 99285; 36415; 93005; 85379; 83880; 80053; 82140; 83605; 83735; 84100; 84443; 84484; 85025; 85610; 85730; 81003; 70496; 70450; 70498; G0378; Q9967